=== PATIENT | female | born 1990 | race Caucasian/White ===

== ENCOUNTER → 2017-01-03 | Outpatient (CLI) | payer OTHER ==
--- NOTE | 2017-01-04 11:50 | US ---
Ultrasound-guided HISTORY: Palpable mass Ultrasound performed at the level of the palpable mass in the right neck. Apical focus measuring 4.4 x 1.4 cm is present. Grayscale, color Doppler imaging performed. No significant internal color flow. IMPRESSION: Soft tissue mass may represent adenopathy. Contrast-enhanced neck CT is recommended.
== END | disposition home or self-care (01) ==
LOC: RADUSWWP 15:28
PROVIDERS: ATTEND Family Medicine
DX: R22.1 Localized swelling, mass and lump, neck (principal)
CPT/HCPCS: 76536

== ENCOUNTER → 2017-01-15 | Outpatient (CLI) | payer OTHER ==
--- NOTE | 2017-01-16 10:13 | CT ---
EXAMINATION TYPE: CT soft tissue neck w con DATE OF EXAM: 01/15/2017 5:04 PM COMPARISON: NONE HISTORY: Right sided neck swelling marked by BB for [address] DLP: 367.8 mGycm CONTRAST: Patient injected with 100 mL of Omnipaque 300. TECHNIQUE: Axial images at 3 mm thick sections. Reconstructed images in the coronal plane and sagitt al plane are reviewed. FINDINGS: Limited CT sections are obtained the lung apices. The lung apices appear clear. CT neck: The torus tubarius and fossa of Rosenmuller are normal. Probate Judge spaces are normal. Para nasal sinuses and mastoid air cells are clear. Parotid glands appear normal and symmetrical. Submandibular glands, are normal. Parapharyngeal spac es are normal. There is a large hypodense smoothly bordered lesion within the left neck jugulodigast neno region. This is a transverse dimension of 2.3 cm. AP dimension appears to be 3.6 cm. Enlarged lym ph node may be present. Enhancement is not identified. Does not appear cystic with a Hounsfield unit measurement of 63. There are additional small bilateral cervical nodes present. The hypopharynx appears within normal limits. Vocal cord level appear symmetrical. Subglottic airway appears normal. Thyroid as visualized is normal. Osseous structures are normal. Ascending thoracic aorta at the level of the main pulmonary artery is 3.0 cm. The main pulmonary leticia ry at the bifurcation is 2.8 cm. IMPRESSIONS: 1. 2.3 x 3.6 smooth enlarged density right neck likely is enlarged lymphadenopathy. This is in the ju gulodigastric region extending towards the anterior cervical chain corresponds to the inferior placed BB. Other etiologies could include a solid lesion without enhancement additional workup is recommend ed. Primary and metastatic lesions are not excluded.
== END ==
LOC: RADCTMAIN 16:34
PROVIDERS: ATTEND Family Medicine
DX: R22.9 Localized swelling, mass and lump, unspecified (principal)
CPT/HCPCS: 70491; Q9967

== ENCOUNTER → 2017-02-12 | Outpatient (CLI) | payer OTHER ==
--- NOTE | 2017-02-12 16:55 | CT ---
EXAMINATION TYPE: CT chest w con DATE OF EXAM: 02/12/2017 4:41 PM COMPARISON: NONE HISTORY: Swollen cervical lymph node x8 months. R/O chest nodules. CT DLP: 213.5 mGycm Automated exposure control for dose reduction was used. CONTRAST: CT scan of the chest is performed with IV Contrast, patient injected with 100 mL of Omnipaque 300. FINDINGS: The lungs are clear of infiltrate. There is no evidence of pleural effusion. There is no sign of a pu lmonary nodule. There are no hilar masses. There is no mediastinal adenopathy. Pulmonary arteries benja ear normal. Thoracic aorta shows no sign of aneurysm or dissection. The bony thorax appears intact. H eart size is normal. Visualized thyroid gland is symmetric. There are a few axillary lymph nodes that measure up to 1 cm. IMPRESSION: Normal CT scan of the chest. No evidence of pulmonary nodule.
== END | disposition home or self-care (01) ==
LOC: RADCTMAIN 16:18
PROVIDERS: ATTEND Surgery
DX: R59.0 Localized enlarged lymph nodes (principal)
CPT/HCPCS: 71260; Q9967

== ENCOUNTER 2017-02-20 06:11 | Day surgery (SDC) | payer OTHER ==
[2017-02-18 12:40] VITALS: BMI 26.6
[~2017-02-20 06:11] MED LIST: DEXAMETHASONE SOD PHOSPHATE 10 MG/ML 1 ML VIAL IV ONE; HYDROmorphone 1 MG/ML 1 ML SYRINGE IVP PRN; LACTATED RINGERS 1,000 ML IV SCH; LIDOCAINE 1% 20 ML VIAL (10MG/ML) FOR IV START INTRADERMA PRN; ONDANSETRON 4 MG/2 ML VIAL IVP ONE; SCOPOLAMINE 1.5MG/72HR PATCH TRANSDERM ONE
[2017-02-20 06:28] VITALS: TEMP 97.3
--- NOTE | 2017-02-20 07:51 | P.GSHP ---
History of Present Illness H&P Date: 02/20/17 Chief Complaint: Enlarged right cervical lymph node This a 26-year-old female with a mass in her right neck for prostate 6 months. Patient underwent computed tomography scan the neck and was found to have an enlarged cervical lymph node in the jugulodigastric area. Lymph node measured proximal to 3 cm in diameter. She presents today for right cervical lymph node biopsy. - Constitutional Constitutional: Reports as per HPI Past Medical History Past Medical History: No Reported History History of Any Multi-Drug Resistant Organisms: None Reported Past Surgical History: No Surgical Hx Reported Additional Past Surgical History / Comment(s): wisdom teeh extracted, R inner thigh lump removed. Past Anesthesia/Blood Transfusion Reactions: No Reported Reaction Past Psychological History: No Psychological Hx Reported Smoking Status: Never smoker Past Alcohol Use History: Occasional Past Drug Use History: Marijuana Additional Drug Use History / Comment(s): occasionally - Past Family History Mother Family Medical History: Cancer Additional Family Medical History / Comment(s): Breast Medications and Allergies Home Medications Medication Instructions Recorded Confirmed Type Dextroamphetamine/Amphetamine 1 tab PO DAILY 02/18/17 02/20/17 History [Adderall] Allergies Allergy/AdvReac Type Severity Reaction Status Date / Time No Known Allergies Allergy Verified 02/18/17 13:02 Surgical - Exam Vital Signs Temp Pulse Resp BP Pulse Ox 97.3 F L 69 16 109/65 97 02/20/17 06:27 02/20/17 06:27 02/20/17 06:27 02/20/17 06:27 02/20/17 06:27 - General well developed, no distress - Eyes PERRL - ENT normal pinna - Neck 3 cm enlarged lymph node right cervical area at the jugulodigastric region. The mass is firm and nontender - Respiratory normal expansion - Cardiovascular Rhythm: regular - Abdomen Abdomen: soft, non tender Assessment and Plan Plan: Right cervical lymphadenopathy. We'll perform right cervical lymph node biopsy.
[2017-02-20] MEDS ORDERED: PROPOFOL 10 MG/ML 20 ML VIAL IV ONE (07:55)
[2017-02-20] MEDS ORDERED: CLINDAMYCIN 150 MG/ML 4 ML VIAL ONE (07:55)
[2017-02-20] MEDS ORDERED: fentaNYL (PF) 50 MCG/ML 2 ML AMP ONE (07:55)
[2017-02-20] MEDS ORDERED: LIDOCAINE 1% INJ 10MG/ML (20 ML MDV) ONE (07:55)
[2017-02-20] MEDS ORDERED: SUCCINYLCHOLINE CHLORIDE 100 MG/5 ML SYR IV ONE (07:55)
[2017-02-20] MEDS ORDERED: ceFAZolin 1,000 MG VIAL ONE (07:55)
[2017-02-20] MEDS ORDERED: MIDAZOLAM 2 MG/2 ML VIAL ONE (07:55)
[2017-02-20] MEDS ORDERED: BUPIVACAINE (PF) 0.25% 30 ML VIAL SQ ONE ×2 (08:28)
[2017-02-20] MEDS ORDERED: SODIUM CHLORIDE 0.9% 50 ML with ceFAZolin 2,000 MG IV ONE ×2 (08:36)
[2017-02-20] MEDS ORDERED: SODIUM CHLORIDE 0.9% 50 ML with CLINDAMYCIN 600 MG IV ONE ×2 (08:42)
--- NOTE | 2017-02-20 09:00 | P.OP ---
Date of Procedure: 02/20/17 Preoperative Diagnosis: Right cervical lymphadenopathy Postoperative Diagnosis: Right cervical lymph node abscess Procedure(s) Performed: Right cervical lymph node biopsy and drainage of abscess Implants: Anesthesia: CATARINAA Surgeon: Jaxson Fortune Estimated Blood Loss (ml): 10 Pathology: other (cervical lymph node) Condition: stable Disposition: PACU Indications for Procedure: Operative Findings: Lymph node abscess Description of Procedure: The patient's placed the operative table in the supine position. She received general anesthesia. Her neck was prepped and draped usual sterile fashion. Patient had a 3 cm mass in the right jugulodigastric area. A transverse skin incision was made over the mass and then using electrocautery the subcutaneous tissue divided. The muscles were spread with a hemostat and the lymph node was visualized. Lymph node appeared to be large and fleshy. The lymph node was dissected with the Harmonic scissors. During the distal lymph node dissection the abscess cavity with a lymph node was entered. This was cultured. The lymph node was removed using Harmonic scissors. A 10 DINORAH drain was placed into the wound and brought through separate stab incision. The wound was irrigated. The wound was irrigated with saline. The deep layers closed 3-0 Vicryl. Serosal a 3-0 Monocryl. Dermabond was applied. Patient sent to recovery in stable condition.
[2017-02-20] MEDS ORDERED: LACTATED RINGERS 1,000 ML IV ONE (09:05)
[2017-02-20 12:23] VITALS: BP 100/55; PULSE 72; RESP 18
== END 2017-02-20 12:23 | disposition home or self-care (01) ==
LOC: OR 06:11
PROVIDERS: ATTEND Surgery
DX: Z79.899 Other long term (current) drug therapy (principal); L04.8 Acute lymphadenitis of other sites
CPT/HCPCS: 81025; 88305; 87070; 87205; 87075; 38500; J2250; J1100; J2405; J0690 ×2; J2001; J3010; J1170; J0330; J2704

== ENCOUNTER → 2018-01-12 | Outpatient (CLI) | payer OTHER ==
--- NOTE | 2018-01-12 13:01 | ECHOF ---
Referral Reason:R07.89 Atypical Chest Pain MEASUREMENTS -------- HEIGHT: 167.6 cm WEIGHT: 74.8 kg BP: 114/65 RVIDd: 2.2 cm (< 3.3) IVSd: 0.9 cm (0.6 - 1.1) LVIDd: 4.5 cm (3.9 - 5.3) LVPWd: 0.9 cm (0.6 - 1.1) IVSs: 1.4 cm LVIDs: 3.1 cm LVPWs: 1.3 cm LA Diam: 2.5 cm (2.7 - 3.8) Ao Diam: 3.1 cm (2.0 - 3.7) AV Cusp: 2.2 cm (1.5 - 2.6) MV EXCURSION: 21.605 mm (> 18.000) MV EF SLOPE: 175 mm/s (70 - 150) EPSS: 0.5 cm MV E Berry: 0.93 m/s MV DecT: 230 ms MV A Berry: 0.66 m/s MV E/A Ratio: 1.41 FINDINGS -------- Sinus rhythm. This was a technically good study. The left ventricular size is normal. Left ventricular wall thickness is normal. Overall left vent ricular systolic function is normal with, an EF between 60 - 65 %. The right ventricle is normal in size. The left atrial size is normal. The right atrium is normal in size. The aortic valve is trileaflet and appears structurally normal. The mitral valve is normal. The tricuspid valve appears structurally normal. There is no pulmonic regurgitation present. The aortic root size is normal. Normal inferior vena cava with normal inspiratory collapse consistent with estimated right atrial pre ssure of 5 mmHg. There is no pericardial effusion. CONCLUSIONS -------- 1. Sinus rhythm. 2. This was a technically good study. 3. The left ventricular size is normal. 4. Left ventricular wall thickness is normal. 5. Overall left ventricular systolic function is normal with, an EF between 60 - 65 %. 6. The right ventricle is normal in size. 7. The left atrial size is normal. 8. The right atrium is normal in size. 9. The aortic valve is trileaflet and appears structurally normal. 10. The mitral valve is normal. 11. The tricuspid valve appears structurally normal. 12. There is no pulmonic regurgitation present. 13. The aortic root size is normal. 14. Normal inferior vena cava with normal inspiratory collapse consistent with estimated right atrial pressure of 5 mmHg. 15. There is no pericardial effusion. MANUFACTURING PROJECT ENGINEER: Tayler Wild RDCS
--- NOTE | 2018-01-12 13:14 | EST ---
EXERCISE STRESS AGE: 27 SEX: F HT: 5'6" WT: 164 PROTOCOL: Francisco Stress Test STAGE: III DURATION OF EXERCISE: 9:30 HEART RATE REST: 78 BLOOD PRESSURE REST: 114/65 MAXIMUM HEART RATE ACHIEVED: 168 MAXIMUM BLOOD PRESSURE: 157/62 85% MPHR: 164 100% MPHR: 193 METS: 11.1 INDICATIONS: Chest pain. CLINICAL INFORMATION: Baseline EKG shows sinus rhythm, normal axis, normal intervals. Patient exercised on Francisco protocol for a total of 9.5 minutes achieving 11 METs, 87% of predicted maximal heart rate without chest pain or diagnostic ST-segment depression. CONCLUSION: 1. Excellent exercise tolerance. 2. Negative stress test by EKG criteria. MMODL / IJN: [id number] /
== END | disposition home or self-care (01) ==
LOC: RADNMMAIN 10:49
PROVIDERS: ATTEND Family Medicine
DX: R07.89 Other chest pain (principal)
CPT/HCPCS: 93017; 93306

== ENCOUNTER → 2018-10-15 | Outpatient (CLI) | payer OTHER ==
--- NOTE | 2018-10-15 13:04 | XR ---
EXAM TYPE: LUMBAR SPINE X RAY SERIES COMPARISON: NONE HISTORY: Low back pain TECHNIQUE: 4 views are submitted. FINDINGS: Alignment is anatomic. The pedicles are intact. The transverse processes are intact. There is no s pondylolysis or spondylolisthesis. Facet arthropathy L4-5 and L5-S1. IMPRESSION: 1. Multilevel facet arthropathy. Consider MRI.
== END | disposition home or self-care (01) ==
LOC: RADXRMAIN 12:37
PROVIDERS: ATTEND Family Medicine
DX: M46.96 Unspecified inflammatory spondylopathy, lumbar region (principal); M46.97 Unspecified inflammatory spondylopathy, lumbosacral region
CPT/HCPCS: 72110

== ENCOUNTER → 2018-10-20 | Outpatient (CLI) | payer OTHER ==
--- NOTE | 2018-10-21 04:08 | MR ---
EXAMINATION TYPE: MR lumbar spine wo con DATE OF EXAM: 10/20/2018 COMPARISON: Radiographs 10/15/2018 HISTORY: 28-year-old female Back pain / Radiculopathy TECHNIQUE: Multiplanar, multisequence images of the lumbar spine were acquired. FINDINGS: There is a transitional lumbosacral segment denoted as a sacralized L5. There are accelerated degenerative changes above the transitional segment at L4-L5 characterized by d isc desiccation and mild disc interspace narrowing as well as a focal central disc protrusion disc ma terial closely approaches but does not clearly abut the traversing left L5 nerve root. All the herniation does focally impresses on to the central aspect of the ventral thecal sac, there i s no significant spinal canal stenosis. Mild facet arthropathy mid to lower lumbar spine. Changes result in minimal bilateral inferior foraminal narrowing at L4-L5. Conus medullaris is normal. Vertebral body heights are preserved. Alignment is maintained. No suspici ous bone marrow replacement. No other focal disc herniation or significant spinal canal or neuroforaminal stenosis. IMPRESSION: 1. Transitional lumbosacral segment denoted as a sacralized L5. 2. Accelerated degenerative disc disease above the transitional segment with a desiccated and mildly narrowed disc demonstrating a central disc herniation. 3. The herniated disc closely approaches the traversing left L5 nerve root. No significant spinal can al stenosis. 4. Along with mild facet arthropathy, there is minimal bilateral inferior neuroforaminal narrowing at L4-L5.
== END | disposition home or self-care (01) ==
LOC: RADMRIMAIN 07:44
PROVIDERS: ATTEND Family Medicine
DX: M48.061 Spinal stenosis, lumbar region without neurogenic claudication (principal); M51.16 Intervertebral disc disorders with radiculopathy, lumbar region; M46.96 Unspecified inflammatory spondylopathy, lumbar region; Q76.49 Other congenital malformations of spine, not associated with scoliosis
CPT/HCPCS: 72148

== ENCOUNTER → 2019-12-09 | Outpatient (CLI) | payer OTHER ==
--- NOTE | 2019-12-10 09:53 | MM ---
Reason for exam: screening (asymptomatic). Baseline mammogram. History: Patient has breast cancer gene. Family history of breast cancer in mother at age 49 and breast cancer in maternal grandmother at age 40. Took hormonal contraceptives for 7 years beginning at age 14. Physical Findings: Nurse did not find any significant physical abnormalities on exam. MG 3D Screening Mammo W/Cad Bilateral CC and MLO view(s) were taken. XCCL view(s) were taken of the left breast. The breast tissue is heterogeneously dense. This may lower the sensitivity of mammography. There is a 6mm right central upper right mass 2.5-3.5cm from nipple. No suspicious abnormality on the left. These results were verbally communicated with the patient and result sheet given to the patient on 12/09/19. ASSESSMENT: Incomplete: need additional imaging evaluation, BI-RAD 0 RECOMMENDATION: Ultrasound of the right breast. (upper outer quadrant)
--- NOTE | 2019-12-10 09:55 | USB ---
Reason for exam: additional evaluation requested from abnormal screening. History: Patient has breast cancer gene. Family history of breast cancer in mother at age 49 and breast cancer in maternal grandmother at age 40. Took hormonal contraceptives for 7 years beginning at age 14. Physical Findings: Breast exam preformed at baseline screening. US Breast Workup Limited RT Right limited breast ultrasound including focal area of concern, retroareolar and axilla demonstrates no cystic or solid lesion seen. No corresponding sonographic abnormality to the mammographic mass. These results were verbally communicated with the patient and result sheet given to the patient on 12/09/19. ASSESSMENT: Incomplete: need additional imaging evaluation, BI-RAD 0 RECOMMENDATION: Special view mammogram of the right breast.
--- NOTE | 2019-12-10 09:58 | MM ---
Reason for exam: additional evaluation requested from abnormal screening. History: Patient has breast cancer gene. Family history of breast cancer in mother at age 49 and breast cancer in maternal grandmother at age 40. Took hormonal contraceptives for 7 years beginning at age 14. Physical Findings: Breast exam preformed at baseline screening. MG 3D Work Up W/Cad RT Spot compression CC, spot compression MLO, and LM view(s) were taken of the right breast. The breast tissue is heterogeneously dense. This may lower the sensitivity of mammography. The 6mm right upper outer quadrant mass persists on additional views with no sonographic correlate. An additional 6mm mass with no sonographic correlate is seen on spot views in the upper inner quadrant at middle depth. As this is a baseline these could be on the basis of oval focal dense tissue. 6 month follow up right mammogram recommended. These results were verbally communicated with the patient and result sheet given to the patient on 12/09/19. ASSESSMENT: Probably benign, BI-RAD 3 RECOMMENDATION: Follow-up diagnostic mammogram of the right breast in 6 months. High risk annual screening breast MRI should be considered.
== END | disposition home or self-care (01) ==
LOC: RADMAMWWP 14:51
PROVIDERS: ATTEND Internal Medicine Hematology & Oncology
DX: Z12.31 Encounter for screening mammogram for malignant neoplasm of breast (principal); R92.8 Other abnormal and inconclusive findings on diagnostic imaging of breast; Z80.3 Family history of malignant neoplasm of breast
CPT/HCPCS: 77067; 77065; 77063; 76642; G0279; 77061

== ENCOUNTER 2020-05-03 17:43 | Emergency (ER) | payer OTHER ==
[2020-05-03 17:48] VITALS: RESP 16
[2020-05-03] MEDS ORDERED: SODIUM CHLORIDE 0.9% 1,000 ML IV STA ×2 (18:07)
[2020-05-03] MEDS ORDERED: ONDANSETRON 4 MG/2 ML VIAL IVP STA (18:07)
[2020-05-03] MEDS ORDERED: PANTOPRAZOLE 40 MG/10 ML VIAL IVP STA (18:07)
[2020-05-03] MEDS ORDERED: SODIUM CHLORIDE 0.9% 500 ML 500 ML IV STA (18:07)
[2020-05-03] MEDS ORDERED: DIAZEPAM 5 MG/ML 2 ML INJ IVP STA (18:08)
--- NOTE | 2020-05-03 18:08 | ED ---
Weakness HPI - General Chief complaint: Shortness of Breath Stated complaint: SOB/shaky/blurred vision Time Seen by Provider: 05/03/20 18:07 Source: patient, RN notes reviewed, old records reviewed Mode of arrival: ambulatory Limitations: no limitations - History of Present Illness Initial comments: This is a 29-year-old female DF for evaluation patient Dese for evaluation regards to not feeling well some tremors and shakes some sweating. No signific ant medical history takes Adderall for medication does admit to a three-day history of 43 to four-day history of drinking, patient was on vacation out in the sun sensation is primary well. Patient hasn't shortness of breath and some anxiety this afternoon and came DF for evaluation. No current chest pain. Patient is denying any fever or known sick contacts MD Complaint: generalized weakness (Shortness of breath weakness tremors) -: hour(s) Location: generalized Severity: mild Consistency: constant Improves with: none, evening Associated Symptoms: chest pain, loss of appetite, nausea/vomiting, shortness of breath - Related Data Home Medications Medication Instructions Recorded Confirmed Dextroamphetamine/Amphetamine 1 tab PO DAILY 02/18/17 02/20/17 [Adderall] Previous Rx's Medication Instructions Recorded Docusate [Colace] 100 mg PO BID #20 capsule 02/20/17 HYDROcodone/APAP 7.5-325MG [[place] 1 each PO Q4H PRN #60 tab 02/20/17 7.5] Levofloxacin [Levaquin] 500 mg PO DAILY #10 tab 02/20/17 Allergies Allergy/AdvReac Type Severity Reaction Status Date / Time hydrocodone [From Vicodin] AdvReac Unknown Verified 05/03/20 17:48 Review of Systems ROS Statement: Those systems with pertinent positive or pertinent negative responses have been documented in the HPI. ROS Other: All systems not noted in ROS Statement are negative. Past Medical History Past Medical History: No Reported History History of Any Multi-Drug Resistant Organisms: None Reported Past Surgical History: No Surgical Hx Reported Additional Past Surgical History / Comment(s): alberto choe Past Anesthesia/Blood Transfusion Reactions: Unable to Obtain Past Psychological History: No Psychological Hx Reported Smoking Status: Current every day smoker Past Alcohol Use History: Occasional Past Drug Use History: Marijuana - Past Family History Mother Family Medical History: Cancer General Exam Limitations: no limitations General appearance: alert, in no apparent distress, anxious Head exam: Present: atraumatic, normocephalic, normal inspection Eye exam: Present: normal appearance, PERRL, EOMI. Absent: scleral icterus, conjunctival injection, periorbital swelling ENT exam: Present: normal exam, mucous membranes moist Neck exam: Present: normal inspection. Absent: tenderness, meningismus, lymphadenopathy Respiratory exam: Present: normal lung sounds bilaterally. Absent: respiratory distress, wheezes, rales, rhonchi, stridor Cardiovascular Exam: Present: regular rate, normal rhythm, normal heart sounds. Absent: systolic murmur, diastolic murmur, rubs, gallop, clicks GI/Abdominal exam: Present: soft, normal bowel sounds. Absent: distended, tenderness, guarding, rebound, rigid Extremities exam: Present: normal inspection, full ROM, normal capillary refill. Absent: tenderness, pedal edema, joint swelling, calf tenderness Back exam: Present: normal inspection Neurological exam: Present: alert, oriented X3, CN II-XII intact Psychiatric exam: Present: normal affect, normal mood Skin exam: Present: warm, dry, intact, normal color. Absent: rash Course Vital Signs 05/03/20 05/03/20 05/03/20 17:45 18:36 19:08 Temperature 98.3 F Pulse Rate 95 82 79 Respiratory 16 16 16 Rate Blood Pressure 143/92 124/76 124/76 O2 Sat by Pulse 97 99 100 Oximetry - Reevaluation(s) Reevaluation #1: 05/03/20 21:01 Medical record is reviewed Reevaluation #2: 05/03/20 21:01 Patient feels significantly improved informed of results okay for discharge Medical Decision Making - Medical Decision Making 29 female DF for significant weekend drinking. Patient symptoms significantly improved here in the ER she can be discharged home - Lab Data Result diagrams: 05/03/20 18:20 05/03/20 18:20 Lab Results 05/03/20 05/03/20 05/03/20 Range/Units 18:20 18:20 18:20 WBC 11.3 H (3.8-10.6) k/uL RBC 4.38 (3.80-5.40) m/uL Hgb 13.3 (11.4-16.0) gm/dL Hct 40.8 (34.0-46.0) % MCV 93.2 (80.0-100.0) fL MCH 30.3 (25.0-35.0) pg MCHC 32.6 (31.0-37.0) g/dL RDW 12.3 (11.5-15.5) % Plt Count 325 (150-450) k/uL Neutrophils % 70 % Lymphocytes % 22 % Monocytes % 5 % Eosinophils % 1 % Basophils % 1 % Neutrophils # 7.9 H (1.3-7.7) k/uL Lymphocytes # 2.5 (1.0-4.8) k/uL Monocytes # 0.6 (0-1.0) k/uL Eosinophils # 0.1 (0-0.7) k/uL Basophils # 0.1 (0-0.2) k/uL Sodium 136 L (137-145) mmol/L Potassium 4.1 (3.5-5.1) mmol/L Chloride 104 (98-107) mmol/L Carbon Dioxide 23 (22-30) mmol/L Anion Gap 9 mmol/L BUN 8 (7-17) mg/dL Creatinine 0.57 (0.52-1.04) mg/dL Est GFR (CKD-EPI)AfAm >90 (>60 ml/min/1.73 sqM) Est GFR (CKD-EPI)NonAf >90 (>60 ml/min/1.73 sqM) Glucose 120 H (74-99) mg/dL Plasma Lactic Acid Gennaro 1.5 (0.7-2.0) mmol/L Calcium 9.7 (8.4-10.2) mg/dL Phosphorus 3.5 (2.5-4.5) mg/dL Magnesium 1.6 (1.6-2.3) mg/dL Total Bilirubin 0.4 (0.2-1.3) mg/dL AST 47 H (14-36) U/L ALT 42 H (4-34) U/L Alkaline Phosphatase 95 (38-126) U/L Creatine Kinase 221 H (30-135) U/L Troponin I (0.000-0.034) ng/mL Total Protein 6.9 (6.3-8.2) g/dL Albumin 4.3 (3.5-5.0) g/dL Serum Alcohol <10 mg/dL 05/03/20 Range/Units 18:20 WBC (3.8-10.6) k/uL RBC (3.80-5.40) m/uL Hgb (11.4-16.0) gm/dL Hct (34.0-46.0) % MCV (80.0-100.0) fL MCH (25.0-35.0) pg MCHC (31.0-37.0) g/dL RDW (11.5-15.5) % Plt Count (150-450) k/uL Neutrophils % % Lymphocytes % % Monocytes % % Eosinophils % % Basophils % % Neutrophils # (1.3-7.7) k/uL Lymphocytes # (1.0-4.8) k/uL Monocytes # (0-1.0) k/uL Eosinophils # (0-0.7) k/uL Basophils # (0-0.2) k/uL Sodium (137-145) mmol/L Potassium (3.5-5.1) mmol/L Chloride (98-107) mmol/L Carbon Dioxide (22-30) mmol/L Anion Gap mmol/L BUN (7-17) mg/dL Creatinine (0.52-1.04) mg/dL Est GFR (CKD-EPI)AfAm (>60 ml/min/1.73 sqM) Est GFR (CKD-EPI)NonAf (>60 ml/min/1.73 sqM) Glucose (74-99) mg/dL Plasma Lactic Acid Gennaro (0.7-2.0) mmol/L Calcium (8.4-10.2) mg/dL Phosphorus (2.5-4.5) mg/dL Magnesium (1.6-2.3) mg/dL Total Bilirubin (0.2-1.3) mg/dL AST (14-36) U/L ALT (4-34) U/L Alkaline Phosphatase (38-126) U/L Creatine Kinase (30-135) U/L Troponin I <0.012 (0.000-0.034) ng/mL Total Protein (6.3-8.2) g/dL Albumin (3.5-5.0) g/dL Serum Alcohol mg/dL - Radiology Data Radiology results: report reviewed (Chest x-rays negative for acute disease), image reviewed Disposition Clinical Impression: Anxiety, Alcohol withdrawal Disposition: HOME SELF-CARE Instructions (If sedation given, give patient instructions): Alcohol Withdrawal (ED) Is patient prescribed a controlled substance at d/c from ED?: No Referrals: Henrry Marcus DO [Primary Care Provider] - 1-2 days
[2020-05-03 18:40] LABS: Basophils # (A) 0.1 k/uL (0-0.2); Basophils % (A) 1 %; Eosinophils # (A) 0.1 k/uL (0-0.7); Eosinophils % (A) 1 %; HCT 40.8 % (34.0-46.0); HGB 13.3 gm/dL (11.4-16.0); Lymphocytes # (A) 2.5 k/uL (1.0-4.8); Lymphocytes % (A) 22 %; MCH 30.3 pg (25.0-35.0); MCHC 32.6 g/dL (31.0-37.0); MCV 93.2 fL (80.0-100.0); Mean Platelet Volume 7.3; Monocytes # (A) 0.6 k/uL (0-1.0); Monocytes % (A) 5 %; Neutrophils # (A) 7.9 k/uL (1.3-7.7); Neutrophils % (A) 70 %; Platelet Count 325 k/uL (150-450); RBC 4.38 m/uL (3.80-5.40); RDW 12.3 % (11.5-15.5); WBC 11.3 k/uL (3.8-10.6)
[2020-05-03 18:49] LABS: ALT 42 U/L (4-34); AST 47 U/L (14-36); African American GFR (CKD) >90 (>60 ml/min/1.73 sqM); Albumin 4.3 g/dL (3.5-5.0); Alcohol <10 mg/dL; Alkaline Phosphatase 95 U/L (38-126); Anion Gap 9 mmol/L; Blood Urea Nitrogen 8 mg/dL (7-17); Calcium 9.7 mg/dL (8.4-10.2); Carbon Dioxide 23 mmol/L (22-30); Chloride 104 mmol/L (98-107); Creatine Kinase 221 U/L (30-135); Glucose 120 mg/dL (74-99); Magnesium 1.6 mg/dL (1.6-2.3); Non-African American GFR(CKD) >90 (>60 ml/min/1.73 sqM); Phosphorus 3.5 mg/dL (2.5-4.5); Potassium 4.1 mmol/L (3.5-5.1); Sodium 136 mmol/L (137-145); Total Bilirubin 0.4 mg/dL (0.2-1.3); Total Protein 6.9 g/dL (6.3-8.2)
--- NOTE | 2020-05-03 18:51 | XR ---
EXAMINATION TYPE: XR chest 2V DATE OF EXAM: 05/03/2020 COMPARISON: Chest CT February 12, 2017. HISTORY: Shortness of breath. TECHNIQUE: Frontal and lateral views of the chest are obtained. FINDINGS: There is no focal air space opacity, pleural effusion, or pneumothorax seen. The cardiac silhouette size remains enlarged. The osseous structures are intact. IMPRESSION: Cardiomegaly without acute pulmonary process.
[2020-05-03] MEDS ORDERED: diazePAM 5 MG TAB PO STA (20:59)
[2020-05-03 21:10] VITALS: BP 125/87; PULSE 87; TEMP 98
== END 2020-05-03 21:10 | disposition home or self-care (01) ==
LOC: EC 17:43
DX: F10.239 Alcohol dependence with withdrawal, unspecified (principal); R06.02 Shortness of breath; F17.200 Nicotine dependence, unspecified, uncomplicated; Z88.5 Allergy status to narcotic agent
CPT/HCPCS: 36415; 80053; 82550; 83605; 83735; 84100; 84484; 85025; 71046; 99285; 96374; 96375 ×2; 96361 ×3; G0480; J3360; J2405; C9113; 80320

== ENCOUNTER → 2020-08-31 | Outpatient (CLI) | payer OTHER ==
--- NOTE | 2020-08-31 14:10 | MM ---
Reason for exam: follow-up at short interval from prior study. Last mammogram was performed 9 months ago. History: Patient has breast cancer gene. Family history of breast cancer in mother at age 49 and breast cancer in maternal grandmother at age 40. Took hormonal contraceptives for 7 years beginning at age 14. Physical Findings: Nurse did not find any significant physical abnormalities on exam. MG 3D Diag Mammo W/Cad RT CC and MLO view(s) were taken of the right breast. Prior study comparison: December 09, 2019, right breast MG 3d work up w/cad RT. December 09, 2019, bilateral MG 3d screening mammo w/cad. There are scattered fibroglandular densities. There is chronic nodularity in the right breast, stable. These results were verbally communicated with the patient and result sheet given to the patient on 08/31/20. ASSESSMENT: Benign, BI-RAD 2 RECOMMENDATION: Breast MRI of both breasts. Follow-up diagnostic mammogram of both breasts in 3 months. Back on schedule for November 2020.
== END | disposition home or self-care (01) ==
LOC: RADMAMWWP 12:36
PROVIDERS: ATTEND Family Medicine
DX: R92.8 Other abnormal and inconclusive findings on diagnostic imaging of breast (principal)
CPT/HCPCS: 77065; G0279; 77061

== ENCOUNTER → 2020-09-25 | Outpatient (CLI) | payer OTHER ==
--- NOTE | 2020-09-25 11:51 | US ---
EXAMINATION TYPE: US transvaginal DATE OF EXAM: 09/25/2020 COMPARISON: NONE CLINICAL HISTORY: 30-year-old female Z15.02 ovarian cancer. Genetic ovarian CA TECHNIQUE: Transvaginal (TV). FINDINGS: EXAM MEASUREMENTS: Uterus: 6.7 x 2.7 x 4.1 cm Endometrial Stripe: .2 cm Right Ovary: 3.3 x 1.7 x 2.8 cm Left Ovary: 3.3 x 2.3 x 2.6 cm 1. Uterus: Anteverted and otherwise wnl 2. Endometrium: Trace fluid seen within the uterine cavity. 3. Right Ovary: Small follicles present. There is also a 1.7 x 0.8 cm hypoechoic circumscribed and o void lesion that shows some internal reticulations. 4. Left Ovary: Small follicles are seen 5. Bilateral Adnexa: wnl 6. Posterior cul-de-sac: wnl IMPRESSION: 1. Follicles in both ovaries. In addition, there is a 1.7 x 0.8 cm hypoechoic area within the right o vary. Given internal echoes, a hemorrhagic follicle/cyst is suspected. Follow-up in 2-3 months to dorie ssess. 2. Endometrial stripe is thin at 2 mm.
== END | disposition home or self-care (01) ==
LOC: RADUSWWP 09:31
PROVIDERS: ATTEND Internal Medicine Hematology & Oncology
DX: Z15.02 Genetic susceptibility to malignant neoplasm of ovary (principal)
CPT/HCPCS: 76830

== ENCOUNTER → 2020-09-30 | Outpatient (CLI) | payer OTHER ==
--- NOTE | 2020-10-02 08:19 | BMR ---
EXAMINATION TYPE: MR breast BILAT wo/w con DATE OF EXAM: 09/30/2020 COMPARISON: 3-D bilateral breast mammogram December 09, 2019 BI-RADS 0 right breast diagnostic ultrasoun d December 09, 2019 BI-RADS 0. 3-D right breast diagnostic workup same date BI-RADS 3. 3-D right breast mammogram diagnostic August 31, 2020 BI-RADS 2 HISTORY: Genetic mutation for breast and ovarian cancer, abnormal mammogram TECHNIQUE: A series of fat and water weighted images in the long and short axis views of both breasts are obtained in conjunction with dynamic contrast MRI with subtraction technique. The patient was i njected with 8.5 mL intravenous Gadavist gadolinium contrast. Three-dimensional and additional post processing imaging is created on independent workstation and reviewed during official interpretation of this study. FINDINGS: Scattered fibroglandular tissue is redemonstrated throughout both breasts. T2 and STIR weig hted images show 2 adjacent small cysts or slightly lobulated thin-walled cyst in the anterior upper inner quadrant left breast coronal image 10 likely corresponding to the area of mammogram concern. No significant cystic change in the left breast. T1-weighted images show no suspicious axillary adenopa thy bilaterally. Dynamic postcontrast images show mild fairly symmetric bilateral background glanular enhancement. Delayed dynamic postcontrast images show no suspicious intramammary adenopathy. With regards to the left breast, no abnormal skin thickening is seen. No concerning enhancing mass or pathologic enhancement. The chest wall is intact. With regards to the right breast, no pathologic enhancement or enhancing masses are identified. No cerda spicious skin thickening is seen. The chest wall is intact. No suspicious incidental findings. IMPRESSION: No MRI evidence for invasive malignancy in either breast. BI-RADS 2 benign findings right breast BI-RADS 1 negative study left breast Recommendation: Patient due for annual bilateral breast mammogram November 2020 to be back on schedule.
== END | disposition home or self-care (01) ==
LOC: RADMRIMAIN 13:39
PROVIDERS: ATTEND Internal Medicine Hematology & Oncology
DX: R92.8 Other abnormal and inconclusive findings on diagnostic imaging of breast (principal); Z15.01 Genetic susceptibility to malignant neoplasm of breast; Z15.02 Genetic susceptibility to malignant neoplasm of ovary
CPT/HCPCS: C8937; C8908; A9585; 77049

== ENCOUNTER → 2021-03-29 | Outpatient (CLI) | payer OTHER ==
--- NOTE | 2021-03-29 17:18 | US ---
EXAMINATION TYPE: US transvaginal DATE OF EXAM: 03/29/2021 COMPARISON: 09/25/2020 CLINICAL HISTORY: Z15.02 Genetic suspect ovarian CA TECHNIQUE: Transvaginal (TV). Date of LMP: 03/10/21 EXAM MEASUREMENTS: Uterus: 7.3 x 2.7 x 3.4 cm Endometrial Stripe: 0.6 cm Right Ovary: 2.7 x 1.5 x 3.3 cm Left Ovary: 3.6 x 1.9 x 1.8 cm 1. Uterus: Anteverted wnl 2. Endometrium: wnl 6 mm, within normal limits for menstruating female 3. Right Ovary: follicles noted 4. Left Ovary: dominant follicle = 1.8cm 5. Bilateral Adnexa: wnl 6. Posterior cul-de-sac: wnl IMPRESSION: 1. Endometrial stripe is 6 mm, within normal limits for menstruating female. 2. Bilateral ovarian follicles. Dominant follicle in the left ovary measuring 1.8 cm. No free fluid.
--- NOTE | 2021-04-02 15:14 | MM ---
Reason for exam: screening (asymptomatic). Last mammogram was performed 7 months ago. History: Patient has breast cancer gene and is nulliparous. Family history of breast cancer in mother at age 49 and breast cancer in maternal grandmother at age 40. Took hormonal contraceptives for 7 years beginning at age 14. Physical Findings: A clinical breast exam by your physician is recommended on an annual basis and results should be correlated with mammographic findings. MG 3D Screening Mammo W/Cad Bilateral CC and MLO view(s) were taken. Prior study comparison: August 31, 2020, right breast MG 3d diag mammo w/cad RT. December 09, 2019, right breast MG 3d work up w/cad RT. There are scattered fibroglandular densities. No significant changes when compared with prior studies. ASSESSMENT: Negative, BI-RAD 1 RECOMMENDATION: Routine screening mammogram of both breasts at age 40. Manage patient on a clinical basis. The patient may qualify for alternating mammogram and MRI every 6 months.
== END | disposition home or self-care (01) ==
LOC: RADUSWWP 09:41
PROVIDERS: ATTEND Internal Medicine Hematology & Oncology
DX: Z12.31 Encounter for screening mammogram for malignant neoplasm of breast (principal); Z15.02 Genetic susceptibility to malignant neoplasm of ovary; Z80.3 Family history of malignant neoplasm of breast; Z79.3 Long term (current) use of hormonal contraceptives
CPT/HCPCS: 76830; 77063; 77067

== ENCOUNTER → 2021-10-01 | Outpatient (CLI) | payer OTHER ==
--- NOTE | 2021-10-03 07:16 | BMR ---
EXAMINATION TYPE: MR breast BILAT wo/w con DATE OF EXAM: 10/01/2021 COMPARISON: MRI bilateral breasts 09/30/2020. HISTORY: Suspected genetic mal najma breast, family history breast ca TECHNIQUE: A series of fat and water weighted images in the long and short axis views of both breasts are obtained in conjunction with dynamic contrast MRI with subtraction technique. The patient was i njected with 7.5 mL intravenous Gadavist gadolinium contrast. Three-dimensional and additional post processing imaging is created on independent workstation and reviewed during official interpretation of this study. FINDINGS: Heterogeneously dense fibroglandular tissue is identified throughout both breasts. T2 and STIR weight ed images redemonstrated 2 adjacent small cysts or slightly lobulated thin-walled cyst in the anterio r upper inner quadrant left breast coronal image 11 unchanged from prior MRI. There is third addition al slightly smaller thin-walled benign punctate cyst towards the nipple axial image 29 unchanged from prior study. No significant cystic change in the left breast. T1-weighted images show no suspicious new axillary adenopathy bilaterally. Dynamic postcontrast images show moderate to severe fairly symmetric bilateral background glanular en hancement on current study making evaluation suboptimal. History sheet is reviewed. Patient's last no rmal menstrual period September 04. This is outside the desired window of the proliferative phase of m enstrual cycle likely accounting for the significant background enhancement. Delayed dynamic postcont rast images show no suspicious intramammary adenopathy. With regards to the left breast, no abnormal skin thickening is seen. No concerning enhancing mass or pathologic enhancement. The chest wall is intact. With regards to the right breast, no pathologic enhancement or enhancing masses are identified. No cerda spicious skin thickening is seen. The chest wall is intact. No suspicious incidental findings. IMPRESSION: Suboptimal study without MRI evidence for invasive malignancy in either breast. Recommendation: Annual MRI surveillance September 2022.
== END | disposition home or self-care (01) ==
LOC: RADMRIMAIN 08:08
PROVIDERS: ATTEND Internal Medicine Hematology & Oncology
DX: Z15.02 Genetic susceptibility to malignant neoplasm of ovary (principal); Z80.3 Family history of malignant neoplasm of breast
CPT/HCPCS: C8937; C8908; A9585; 77049

== ENCOUNTER → 2022-01-08 | Outpatient (CLI) | payer OTHER ==
--- NOTE | 2022-01-09 07:50 | US ---
EXAMINATION TYPE: US transvaginal DATE OF EXAM: 01/08/2022 COMPARISON: NONE CLINICAL HISTORY: Z15.02 GENETIC SUSCEPTIBILITY TO MALIGNANT NEOPLASM. Follow up to previous. TECHNIQUE: Transvaginal (TV EXAM MEASUREMENTS: Uterus: 7.3 x 3.3 x 4.6 cm Endometrial Stripe: .9 cm Right Ovary: 3.3 x 1.3 x 2.1 cm Left Ovary: 2.7 x 2.2 x 2.7 cm 1. Uterus: Anteverted wnl 2. Endometrium: wnl 3. Right Ovary: wnl 4. Left Ovary: Hypoechoic area seen measuring 1.6 x 2.3 x 1.5 cm. 5. Bilateral Adnexa: wnl 6. Posterior cul-de-sac: wnl IMPRESSION: Left ovarian cystic lesion likely reflecting small hemorrhagic cyst. Neoplasm not excluded. Follow-up in 6 weeks is advised.
== END | disposition home or self-care (01) ==
LOC: RADUSWWP 15:28
PROVIDERS: ATTEND Internal Medicine Hematology & Oncology
DX: N83.202 Unspecified ovarian cyst, left side (principal)
CPT/HCPCS: 76830

== ENCOUNTER → 2022-09-04 | Outpatient (CLI) | payer OTHER ==
--- NOTE | 2022-09-04 16:47 | US ---
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 Pt states palpable lump right lateral neck x 1 month- pt states h/o infected lymph node in same area 5 years ago Right lateral neck in area of pt's palpable, inferior to right submandibular gland, there is a hypo echoic probable abnormal lymph node= 3.7 x 2.4 x 2.3 cm. Two probable smaller lymph nodes visualized inferior to largest node 1)= 1.8 x 0.7 x 0.7 cm 2)= 1.5 x 0.6 x 0.6 cm IMPRESSION: Enlarged lymph node at the level of palpable abnormality. Consider additional workup with contrast CT soft tissue neck. Consider biopsy.
== END | disposition home or self-care (01) ==
LOC: RADUSWWP 16:11
PROVIDERS: ATTEND Family Medicine
DX: R59.0 Localized enlarged lymph nodes (principal); K11.1 Hypertrophy of salivary gland
CPT/HCPCS: 76536

== ENCOUNTER → 2022-10-21 | Outpatient (CLI) | payer OTHER ==
--- NOTE | 2022-10-21 08:02 | CT ---
EXAMINATION TYPE: CT soft tissue neck wo/w con DATE OF EXAM: 10/21/2022 HISTORY: Right sided neck swelling and enlarged lymph nodes. COMPARISON: Prior CT neck 2017 CT DLP: 1012.2 mGycm. Automated Exposure Control for Dose Reduction was Utilized. TECHNIQUE: CT scan of the neck is performed without and with IV Contrast, patient injected with 70ml mL of Isovue 300, axial images are obtained, coronal and sagittal reformatted images are reviewed. FINDINGS: Airway: No gross abnormality seen. Parotid/submandibular glands: No gross abnormality seen. Carotid/Vascular Structures: Some motion artifact degradation axial image 53 level thyroid gland. No significant plaque in the carotid bulb level. Osseous Structures: No significant abnormality. Other: Metallic BB placed at level of palpable abnormality right neck axial image 64. This correspond s to oval hypodense lesion measuring 1.9 x 1.4 cm just posterior to the inferior aspect of the right submandibular gland having local mass effect causing carotid and jugular vessels to be deviated poste riorly and centrally. This was present and was larger on prior study where was contiguous superiorly. Current study shows second oval circumscribed 2.3 x 1.9 cm mass superior to this just deep to the po sterior inferior aspect of the right parotid gland axial image 72. There are prominent but subcentimeter lymph nodes seen bilaterally including posterior cervical trian gles. Finding is similar appearance to prior study. No new greater than 1 cm neck adenopathy is seen. IMPRESSION: Well-circumscribed right neck lesions on current study correspond to site of prior single larger lesion on prior exam. Correlate clinically. Differential includes necrotic adenopathy and con genital etiology such as brachial cleft cyst. Other findings are not excluded. Follow-up advised.
== END | disposition home or self-care (01) ==
LOC: RADCTMAIN 07:05
PROVIDERS: ATTEND Family Medicine
DX: Q18.0 Sinus, fistula and cyst of branchial cleft (principal); R59.0 Localized enlarged lymph nodes
CPT/HCPCS: 70492; Q9967

== ENCOUNTER 2023-01-13 06:33 | Emergency (ER) | payer OTHER ==
[2023-01-13 06:41] VITALS: TEMP 97.6
[2023-01-13] MEDS ORDERED: SODIUM CHLORIDE 0.9% 1,000 ML IV ONE (06:50)
[2023-01-13] MEDS ORDERED: ONDANSETRON 4 MG/2 ML VIAL IVP STA (06:50)
[2023-01-13] MEDS ORDERED: DEXAMETHASONE SOD PHOSPHATE 10 MG/ML 1 ML VIAL IVP STA (06:50)
[2023-01-13] MEDS ORDERED: HYDROmorphone 0.5 MG/0.5 ML SYRINGE IVP STA (06:50)
[2023-01-13 07:19] LABS: Basophils % (A) 0 %; Eosinophils # (A) 0.1 k/uL (0-0.7); Eosinophils % (A) 1 %; HCT 40.5 % (34.0-46.0); HGB 13.6 gm/dL (11.4-16.0); Lymphocytes # (A) 2.8 k/uL (1.0-4.8); Lymphocytes % (A) 26 %; MCH 31.6 pg (25.0-35.0); MCHC 33.6 g/dL (31.0-37.0); Mean Platelet Volume 7.6; Monocytes # (A) 0.9 k/uL (0-1.0); Monocytes % (A) 9 %; Neutrophils # (A) 6.7 k/uL (1.3-7.7); Neutrophils % (A) 62 %; Platelet Count 350 k/uL (150-450); RBC 4.31 m/uL (3.80-5.40); RDW 12.2 % (11.5-15.5); WBC 10.7 k/uL (3.8-10.6)
[2023-01-13 07:28] LABS: ALT 28 U/L (4-34); AST 25 U/L (14-36); African American GFR (CKD) >90 (>60 ml/min/1.73 sqM); Albumin 4.2 g/dL (3.5-5.0); Alkaline Phosphatase 62 U/L (38-126); Anion Gap 5 mmol/L; Blood Urea Nitrogen 8 mg/dL (7-17); Calcium 9.2 mg/dL (8.4-10.2); Carbon Dioxide 29 mmol/L (22-30); Chloride 102 mmol/L (98-107); Glucose 95 mg/dL (74-99); Non-African American GFR(CKD) >90 (>60 ml/min/1.73 sqM); Potassium 4.4 mmol/L (3.5-5.1); Sodium 136 mmol/L (137-145); Total Bilirubin 0.5 mg/dL (0.2-1.3); Total Protein 7.3 g/dL (6.3-8.2)
--- NOTE | 2023-01-13 07:56 | ED ---
Neck Injury/Pain HPI - General Chief Complaint: Neck Pain/Injury Stated Complaint: postop comp/hard time swallowing Time Seen by Provider: 01/13/23 06:44 Source: patient, RN notes reviewed Mode of arrival: ambulatory Limitations: no limitations - History of Present Illness Initial Comments: This a 32-year-old female presents emergency Department chief complaint of swallowing. Patient states she hadn't to lymph nodes removed from right side of her neck on Friday by Dr. Betancourt at [facility]. Patient states is accompanied surgery. Patient states she has been in pain ever since surgery states that it was sore to swallow but states since more difficult times she states she is able to get liquids down. Patient was not scheduled for follow-up and that she had complications. Patient denies any fevers or chills patient is currently on Criders. - Related Data Home Medications Medication Instructions Recorded Confirmed Dextroamphetamine/Amphetamine 1 tab PO DAILY 02/18/17 02/20/17 [Adderall] Previous Rx's Medication Instructions Recorded Docusate [Colace] 100 mg PO BID #20 capsule 02/20/17 HYDROcodone/APAP 7.5-325MG [Criders 1 each PO Q4H PRN #60 tab 02/20/17 7.5] levoFLOXacin [Levaquin] 500 mg PO DAILY #10 tab 02/20/17 Allergies Allergy/AdvReac Type Severity Reaction Status Date / Time hydrocodone [From Vicodin] AdvReac Unknown Verified 05/03/20 17:48 Review of Systems ROS Statement: Those systems with pertinent positive or pertinent negative responses have been documented in the HPI. ROS Other: All systems not noted in ROS Statement are negative. Past Medical History Past Medical History: No Reported History History of Any Multi-Drug Resistant Organisms: None Reported Past Surgical History: No Surgical Hx Reported Additional Past Surgical History / Comment(s): wisdom teeh extracted, Neck surgery 2 lymph nodes and cyst Past Anesthesia/Blood Transfusion Reactions: Unable to Obtain Past Psychological History: No Psychological Hx Reported Smoking Status: Current every day smoker Past Alcohol Use History: Occasional Past Drug Use History: Marijuana - Past Family History Mother Family Medical History: Cancer General Exam Limitations: no limitations General appearance: alert, in no apparent distress Head exam: Present: atraumatic, normocephalic, normal inspection Eye exam: Present: normal appearance, PERRL, EOMI. Absent: scleral icterus, conjunctival injection, periorbital swelling ENT exam: Present: normal oropharynx, mucous membranes moist, TM's normal bilaterally, normal external ear exam. Absent: normal exam (Large surgical incision right side of the neck, there is moderate swelling no erythema there is some tenderness palpation) Neck exam: Present: normal inspection, full ROM. Absent: tenderness, meningismus, lymphadenopathy Respiratory exam: Present: normal lung sounds bilaterally. Absent: respiratory distress, wheezes, rales, rhonchi, stridor Cardiovascular Exam: Present: regular rate, normal rhythm, normal heart sounds. Absent: systolic murmur, diastolic murmur, rubs, gallop, clicks Course Vital Signs 01/13/23 01/13/23 06:37 07:31 Temperature 97.6 F Pulse Rate 74 67 Respiratory 16 16 Rate Blood Pressure 123/79 110/73 O2 Sat by Pulse 98 96 Oximetry Medical Decision Making - Medical Decision Making Was pt. sent in by a medical professional or institution (, PA, [employer], urgent care, hospital, or senior care...) When possible be specific @ -No Did you speak to anyone other than the patient for history (EMS, parent, family, police, friend...)? What history was obtained from this source @ -No Did you review nursing and triage notes (agree or disagree)? Why? @ -I reviewed and agree with nursing and triage notes Were old charts reviewed (outside hosp., previous admission, EMS record, old EKG, old radiological studies, urgent care reports/EKG's, senior care records)? Report findings @ -No old charts were reviewed Differential Diagnosis (chest pain, altered mental status, abdominal pain women, abdominal pain men, vaginal bleeding, weakness, fever, dyspnea, syncope, headache, dizziness, GI bleed, back pain, seizure, CVA, palpatations, mental health, musculoskeletal)? @ -Postsurgical edema, abscess, stridor, this list is not conclusive EKG interpreted by me (3pts min.). @ -None X-rays interpreted by me (1pt min.). @ -None done CT interpreted by me (1pt min.). @ -CT of soft tissue neck shows some swelling of the arytenoid cartilage no abscess or fluid collection noted, postsurgical changes U/S interpreted by me (1pt. min.). @ -None done What testing was considered but not performed or refused? (CT, X-rays, U/S, labs)? Why? @ -None What meds were considered but not given or refused? Why? @ -None Did you discuss the management of the patient with other professionals (professionals i.e. , PA, [employer], lab, RT, psych nurse, social worker assistant, parachute folder, teacher, [employer] officer, case operator)? Give summary @ -[I did discuss case with patient's ENT Dr Benavidez covering for Dr. Betancourt recommended patient be discharged on Medrol Dosepak to follow-up in office to follow-up with him for any worsening or not improving symptoms felt this is normal postsurgical finding Was smoking cessation discussed for >3mins.? @ -No Was critical care preformed (if so, how long)? @ -No Were there social determinants of health that impacted care today? How? (Homelessness, low income, unemployed, alcoholism, drug addiction, transportation, low edu. Level, literacy, decrease access to med. care, group home, rehab)? @ -No Was there de-escalation of care discussed even if they declined (Discuss DNR or withdrawal of care, Hospice)? DNR status @ -No What co-morbidities impacted this encounter? (DM, HTN, Smoking, COPD, CAD, Cancer, CVA, ARF, Chemo, Hep., AIDS, mental health diagnosis, sleep apnea, morbid obesity)? @ -None Was patient admitted / discharged? Hospital course, mention meds given and route, prescriptions, significant lab abnormalities, going to OR and other pertinent info. @ -Discharge patient has some postsurgical swelling causing sore throat and long intubation causing discomfort. Patient will be discharged with Medrol Dosepak follow-up in office and return for any worsening changes symptoms. Undiagnosed new problem with uncertain prognosis? @ -No Drug Therapy requiring intensive monitoring for toxicity (Heparin, Nitro, Insulin, Cardizem)? @ -No Were any procedures done? @ -No Diagnosis/symptom? @ -[Arytenoid cartilage swelling Acute, or Chronic, or Acute on Chronic? @ -Acute Uncomplicated (without systemic symptoms) or Complicated (systemic symptoms)? @ -Uncomplicated Side effects of treatment? @ -No Exacerbation, Progression, or Severe Exacerbation? @ -No Poses a threat to life or bodily function? How? (Chest pain, USA, ND, pneumonia, PE, COPD, DKA, ARF, appy, cholecystitis, CVA, Diverticulitis, Homicidal, Suicidal, threat to staff... and all critical care pts) @ -No - Lab Data Result diagrams: 01/13/23 06:55 01/13/23 06:55 Lab Results 01/13/23 01/13/23 Range/Units 06:55 06:55 WBC 10.7 H (3.8-10.6) k/uL RBC 4.31 (3.80-5.40) m/uL Hgb 13.6 (11.4-16.0) gm/dL Hct 40.5 (34.0-46.0) % MCV 94.0 (80.0-100.0) fL MCH 31.6 (25.0-35.0) pg MCHC 33.6 (31.0-37.0) g/dL RDW 12.2 (11.5-15.5) % Plt Count 350 (150-450) k/uL MPV 7.6 Neutrophils % 62 % Lymphocytes % 26 % Monocytes % 9 % Eosinophils % 1 % Basophils % 0 % Neutrophils # 6.7 (1.3-7.7) k/uL Lymphocytes # 2.8 (1.0-4.8) k/uL Monocytes # 0.9 (0-1.0) k/uL Eosinophils # 0.1 (0-0.7) k/uL Basophils # 0.0 (0-0.2) k/uL Sodium 136 L (137-145) mmol/L Potassium 4.4 (3.5-5.1) mmol/L Chloride 102 (98-107) mmol/L Carbon Dioxide 29 (22-30) mmol/L Anion Gap 5 mmol/L BUN 8 (7-17) mg/dL Creatinine 0.55 (0.52-1.04) mg/dL Est GFR (CKD-EPI)AfAm >90 (>60 ml/min/1.73 sqM) Est GFR (CKD-EPI)NonAf >90 (>60 ml/min/1.73 sqM) Glucose 95 (74-99) mg/dL Calcium 9.2 (8.4-10.2) mg/dL Total Bilirubin 0.5 (0.2-1.3) mg/dL AST 25 (14-36) U/L ALT 28 (4-34) U/L Alkaline Phosphatase 62 (38-126) U/L Total Protein 7.3 (6.3-8.2) g/dL Albumin 4.2 (3.5-5.0) g/dL Disposition Clinical Impression: Anomaly of arytenoid cartilage, Postoperative edema Disposition: HOME SELF-CARE Condition: Stable Additional Instructions: Please return to the Emergency Department if symptoms worsen or any other concerns. Is patient prescribed a controlled substance at d/c from ED?: No Referrals: Henrry Marcus DO [Primary Care Provider] - 1-2 days Time of Disposition: 08:43
--- NOTE | 2023-01-13 08:11 | CT ---
EXAMINATION 314.5 TYPE: CT soft tissue neck w con CT DLP: 314.5 mGycm, Automated exposure control for dose reduction was used. DATE OF EXAM: 01/13/2023 8:04 AM COMPARISON: 10/21/2022, 01/15/2017. CLINICAL INDICATION:Female, 32 years old with history of s/p lymphadenectomy, difficulty swallowing; TECHNIQUE: Standard enhanced CT of the neck. Axial sections with coronal and sagittal reformats were obtained. Contrast used: 70 cc of Isovue-300 Oral contrast used: none. FINDINGS: Brain: Visualized portions are grossly unremarkable. Orbits: Unremarkable Sinuses: Grossly unremarkable. Spaces of the neck: Post surgical changes the right neck. There is few foci of gas present in the eddi gical bed. Surgical clip is present. There is asymmetric fullness of the right arytenoid cartilage. T his is best appreciated on series 202 image 45 and 201 image 51. There is no organizing fluid collect ion at the neck. Musculoskeletal: No acute osseous pathology. Lymph nodes: Multiple nonenlarged lymph nodes are seen along both anterior chains of the neck. Vascular structures: Visualized major arteries are patent without evidence of aneurysm. Thoracic Inlet/airway: Airway is patent. The lung apices are clear. Soft tissues/Thyroid: Thyroid and remainder of the soft tissues are unremarkable. Other: none. IMPRESSION Asymmetric fullness of the right arytenoid cartilage favored to be secondary to edema. Further evalua tion with direct visualization may be of benefit. Postsurgical change without evidence for organizing fluid collection to suggest abscess.
[2023-01-13 09:26] VITALS: BP 113/68; PULSE 76; RESP 18
== END 2023-01-13 09:26 | disposition home or self-care (01) ==
LOC: EC 06:33
DX: T81.89XA Other complications of procedures, not elsewhere classified, initial encounter (principal); R60.9 Edema, unspecified; Q31.8 Other congenital malformations of larynx; F17.200 Nicotine dependence, unspecified, uncomplicated; F12.90 Cannabis use, unspecified, uncomplicated; Z88.5 Allergy status to narcotic agent
CPT/HCPCS: 36415; 80053; 85025; 70491; 99284; 96374; 96375 ×2; 96361 ×2; J1100; J2405; J1170; Q9967

== ENCOUNTER 2023-03-22 03:05 | Emergency (ER) | payer OTHER ==
[2023-03-22 03:29] VITALS: TEMP 98.3
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
[2023-03-22] MEDS ORDERED: KETOROLAC 15 MG/ML 1 ML VIAL IM STA (07:25)
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
[2023-03-22 07:44] VITALS: BP 111/78; PULSE 96; RESP 18
== END 2023-03-22 08:10 | disposition home or self-care (01) ==
LOC: EC 03:05
DX: R07.89 Other chest pain (principal); F17.200 Nicotine dependence, unspecified, uncomplicated; F12.90 Cannabis use, unspecified, uncomplicated; Z88.5 Allergy status to narcotic agent; V49.40XA Driver injured in collision with unspecified motor vehicles in traffic accident, initial encounter
CPT/HCPCS: 73562; 72170; 71046; 99284; 96372; J1885

== ENCOUNTER → 2023-05-15 | Outpatient (CLI) | payer OTHER ==
--- NOTE | 2023-05-15 11:05 | US ---
EXAMINATION TYPE: US transvaginal DATE OF EXAM: 05/15/2023 COMPARISON: US TV 11/22/22 CLINICAL INDICATION: Female, 32 years old with history of Z15.02; Screening for ovarian cancer; gene carrier TECHNIQUE: Transvaginal (TV). Transabdominal sonographic images of the pelvis were acquired. Trans vaginal sonographic images were medically necessary to better assess the following anatomy: Date of LMP: 04/20/23 EXAM MEASUREMENTS: Uterus: 8.3 x 3.4 x 4.5 cm Endometrial Stripe: 0.95 cm Right Ovary: 3.1 x 2.0 x 2.6 cm Left Ovary: 3.1 x 1.8 x 2.2 cm 1. Uterus: Anteverted wnl 2. Endometrium: wnl 3. Right Ovary: wnl 4. Left Ovary: wnl 5. Bilateral Adnexa: wnl 6. Posterior cul-de-sac: wnl IMPRESSION: No discrete abnormality seen.
--- NOTE | 2023-05-16 11:05 | MM ---
Reason for Exam: Screening (asymptomatic). Last screening mammogram was performed 12 month(s) ago. Patient History: Menarche at age 12. Patient has no children. Premenopausal. Patient tested for BRCA1 outcome was positive. Hormonal Contraceptives for 7 years from age 14 until age 23. Maternal grandmother had breast cancer, age 40. Mother had breast cancer, age 49. Last menstrual period: 04/21/2023 Prior Study Comparison: 08/31/2020 Right Diagnostic Mammogram, [facility]. 03/29/2021 Bilateral Screening Mammogram, [facility]. 05/14/2022 Bilateral MG 3D screening mammo w/cad, [facility]. Tissue Density: The breast tissue is heterogeneously dense. This may lower the sensitivity of mammography. Findings: Analyzed By CAD. There is no suspicious group of microcalcifications or new suspicious mass in either breast. Overall Assessment: Negative, BI-RAD 1 Management: Screening Mammogram of both breasts in [address] [facility] will attempt to contact patient to return for supplemental views and ultrasound if indicated. Patient should continue monthly self-breast exams. A clinical breast exam by your physician is recommended on an annual basis. This exam should not preclude additional follow-up of suspicious palpable abnormalities. Note on Tangela scores and lifetime risk: 1. A Tangela score greater than 3% is considered moderate risk. If this is the case, consider specialist referral to assess eligibility for a risk reducing agent. 2. If overall lifetime risk for the development of breast cancer is 20% or higher, the patient may qualify for future screening with alternating mammogram and breast MRI. Electronically signed and approved by: Oscar Curry DO
== END | disposition home or self-care (01) ==
LOC: RADMAMWWP 09:39
PROVIDERS: ATTEND Internal Medicine Hematology & Oncology
DX: Z12.31 Encounter for screening mammogram for malignant neoplasm of breast (principal); Z15.02 Genetic susceptibility to malignant neoplasm of ovary; Z15.01 Genetic susceptibility to malignant neoplasm of breast; Z80.3 Family history of malignant neoplasm of breast
CPT/HCPCS: 76830; 77063; 77067

== ENCOUNTER → 2023-11-21 | Outpatient (CLI) | payer OTHER ==
--- NOTE | 2023-11-21 15:17 | BMR ---
EXAM DATE: 11/21/2023 EXAM DESCRIPTION: MRI-Breast Bilat (W/WO Contrast) INDICATION: High-risk screening. Genetic susceptibility to breast cancer. COMPARISON: Prior breast MRI dated 11/22/2022 and 10/01/2021 CONTRAST: 8.5ml gadavist contrast material. TECHNIQUE: Multi sequence multiplanar MR imaging of the breasts was obtained. Subsequently, after the uneventful intravenous administration of Gadavist contrast material, 6 dynamic sequences were then obtained. Post processing was performed utilizing a [employer] CAD workstation. FINDINGS: The breasts are composed of scattered fibroglandular tissue. There is mild background parenchymal enhancement identified. There is no axillary or internal mammary lymphadenopathy. No focal skin thickening or nipple retraction. The bone marrow signal intensity is unremarkable. No adenopathy in the visualized mediastinum. T2 weighted images demonstrated no dominant cystic lesions in either breast. Subcentimeter 0.6 parenchymal nodularity in the right breast mid to posterior depth (series 503, image 382) along the nipple line is not significantly changed dated back to September 2021. Post contrast images demonstrated no abnormal enhancement in either breast to suggest malignancy. There is no abnormal signal or enhancement in the chest wall or subcutaneous tissue. IMPRESSION: 1. No MR evidence of malignancy in either breast. Linear 0.6 cm enhancement in the right breast at posterior depth along the nipple line is not significantly changed since prior examination of 10/01/2021. 2. No axillary or internal mammary lymphadenopathy Final assessment: BI-RADS category 2: Benign findings MTDD
== END | disposition home or self-care (01) ==
LOC: RADMRIMAIN 07:56
PROVIDERS: ATTEND Internal Medicine Hematology & Oncology
DX: Z15.01 Genetic susceptibility to malignant neoplasm of breast (principal)
CPT/HCPCS: C8908; A9585; 77049

== ENCOUNTER 2024-02-29 09:38 | Emergency (ER) | payer OTHER ==
[2024-02-29 09:42] VITALS: RESP 18
--- NOTE | 2024-02-29 10:06 | ED ---
General Adult HPI - General Chief complaint: ENT Stated complaint: Throat Pain Time Seen by Provider: 02/29/24 09:50 Source: patient, RN notes reviewed, old records reviewed Mode of arrival: ambulatory Limitations: no limitations - History of Present Illness Initial comments: This is a 33-year-old female who presents to the emergency department complain ing of a sore throat she states she was diagnosed with strep throat about a month ago and was on amoxicillin for 10 days. Patient states about 2 weeks ago she started having a sore throat again and has gotten progressively worse. Patient states the pain is much more considerable on the left side than the right. Patient states she also has some swelling to the side of her face and some pain up into the ear. Patient denies any fever or chills. Patient denies any cough shortness of breath or chest pain. - Related Data Home Medications Medication Instructions Recorded Confirmed Dextroamphetamine/Amphetamine 1 tab PO DAILY 02/18/17 02/20/17 [Adderall] Previous Rx's Medication Instructions Recorded Docusate [Colace] 100 mg PO BID #20 capsule 02/20/17 HYDROcodone/APAP 7.5-325MG [[place] 1 each PO Q4H PRN #60 tab 02/20/17 7.5] levoFLOXacin [Levaquin] 500 mg PO DAILY #10 tab 02/20/17 methylPREDNISolone Dose Pack 4 mg PO DIRECTED #1 packet 01/13/23 [Medrol Dose Pack] Clindamycin [Cleocin] 450 mg PO Q8H #30 cap 02/29/24 predniSONE [Deltasone] 40 mg PO DAILY #8 tab 02/29/24 Allergies Allergy/AdvReac Type Severity Reaction Status Date / Time hydrocodone [From Vicodin] AdvReac Unknown Verified 02/29/24 09:42 Review of Systems ROS Statement: Those systems with pertinent positive or pertinent negative responses have been documented in the HPI. ROS Other: All systems not noted in ROS Statement are negative. Past Medical History Past Medical History: No Reported History History of Any Multi-Drug Resistant Organisms: None Reported Past Surgical History: No Surgical Hx Reported Additional Past Surgical History / Comment(s): wisdom teeh extracted, Neck surgery 2 lymph nodes and cyst Past Anesthesia/Blood Transfusion Reactions: Unable to Obtain Past Psychological History: No Psychological Hx Reported Smoking Status: Current every day smoker Past Alcohol Use History: Occasional Past Drug Use History: Marijuana - Past Family History Mother Family Medical History: Cancer General Exam - General Exam Comments Initial Comments: GENERAL Patient is well-developed and well-nourished. Patient is in mild distress. EYES Patient's pupils are equal and round. Extraocular motion is intact ENT Patient has significant swelling to the left tonsil there may be a peritonsillar abscess. Uvula was slightly shifted to the right SKIN Unremarkable NEURO The patient is alert and oriented A&Ox3 PYSCH Patient has normal interpersonal interactions. MUSCULOSKELETAL All 4 extremities have full range of motion Limitations: no limitations Course Vital Signs 02/29/24 09:39 Temperature 98 F Pulse Rate 99 Respiratory 18 Rate Blood Pressure 115/78 O2 Sat by Pulse 98 Oximetry Procedures - Incision & Drainage Consent Obtained: verbal consent Site: other (Consult) Anesthetic Used: benzocaine 0.25% Needle Aspiration Performed?: Yes Irrigation Performed?: No I&D Drainage Obtained: Pus, Blood Insertion of drain: No Culture Obtained?: No Complications: pain Patient Tolerated Procedure: well Medical Decision Making - Medical Decision Making Was pt. sent in by a medical professional or institution (Dr. PA, SOFTWARE DESIGN ANALYST, urgent care, hospital, or usp...) When possible be specific @ -No Did you speak to anyone other than the patient for history (EMS, parent, family, police, friend...)? What history was obtained from this source @ -No Did you review nursing and triage notes (agree or disagree)? Why? @ -I reviewed and agree with nursing and triage notes Were old charts reviewed (outside hosp., previous admission, EMS record, old EKG, old radiological studies, urgent care reports/EKG's, usp records)? Report findings @ -No old charts were reviewed Differential Diagnosis (chest pain, altered mental status, abdominal pain women, abdominal pain men, vaginal bleeding, weakness, fever, dyspnea, syncope, headache, dizziness, GI bleed, back pain, seizure, CVA, palpatations, mental health, musculoskeletal)? @ -Strep throat, viral pharyngitis, peritonsillar abscess, this is not an all- inclusive list EKG interpreted by me (3pts min.). @ -As above X-rays interpreted by me (1pt min.). @ -None done CT interpreted by me (1pt min.). @ -None done U/S interpreted by me (1pt. min.). @ -None done What testing was considered but not performed or refused? (CT, X-rays, U/S, labs)? Why? @ -None What meds were considered but not given or refused? Why? @ -None Did you discuss the management of the patient with other professionals (professionals i.e. , PA, SOFTWARE DESIGN ANALYST, lab, RT, psych nurse, social media director, aircraft mechanic, teacher, upscale security officer, pillowcase maker)? Give summary @ -No Was smoking cessation discussed for >3mins.? @ -No Was critical care preformed (if so, how long)? @ -No Were there social determinants of health that impacted care today? How? (Homelessness, low income, unemployed, alcoholism, drug addiction, transportation, low edu. Level, literacy, decrease access to med. care, custodial, rehab)? @ -No Was there de-escalation of care discussed even if they declined (Discuss DNR or withdrawal of care, Hospice)? DNR status @ -No What co-morbidities impacted this encounter? (DM, HTN, Smoking, COPD, CAD, Cancer, CVA, ARF, Chemo, Hep., AIDS, mental health diagnosis, sleep apnea, morbid obesity)? @ -None Was patient admitted / discharged? Hospital course, mention meds given and route, prescriptions, significant lab abnormalities, going to OR and other pertinent info. @ -I used an 18-gauge needle to aspirate the abscess very little pus was obtained patient will be placed on clindamycin and prednisone and follow-up with ear nose and throat and she states she has an ear nose and throat doctor already Undiagnosed new problem with uncertain prognosis? @ -No Drug Therapy requiring intensive monitoring for toxicity (Heparin, Nitro, Insulin, Cardizem)? @ -No Were any procedures done? @ -No Diagnosis/symptom? @ -Peritonsillar abscess Acute, or Chronic, or Acute on Chronic? @ -Acute Uncomplicated (without systemic symptoms) or Complicated (systemic symptoms)? @ -Complicated Side effects of treatment? @ -No Exacerbation, Progression, or Severe Exacerbation? @ -No Poses a threat to life or bodily function? How? (Chest pain, [place], ID, pneumonia, PE, COPD, DKA, ARF, appy, cholecystitis, CVA, Diverticulitis, Homicidal, Suicidal, threat to staff... and all critical care pts) @ -No - Lab Data Lab Results 02/29/24 Range/Units 10:11 Group A Strep (PCR) DETECTED A (Not Detectd) Disposition Clinical Impression: Peritonsillar abscess Disposition: HOME SELF-CARE Instructions (If sedation given, give patient instructions): Abscess Incision and Drainage (ED), Abscess (ED) Additional Instructions: Patient is to follow-up with ENT as soon as possible. Patient should return to the emergency department if there is any difficulty swallowing or breathing or any symptoms worsen. Prescriptions: Clindamycin [Cleocin] 450 mg PO Q8H #30 cap predniSONE [Deltasone] 40 mg PO DAILY #8 tab Is patient prescribed a controlled substance at d/c from ED?: No Referrals: Henrry Marcus DO [Primary Care Provider] - 1-2 days Time of Disposition: 10:36
[2024-02-29] MEDS: BENZOCAINE SPRAY 1 CAN MUCOUS MEM STA (10:11)
[2024-02-29 10:54] VITALS: BP 136/84; PULSE 97; TEMP 98.4
== END 2024-02-29 10:54 | disposition home or self-care (01) ==
LOC: EC 09:38
DX: J36 Peritonsillar abscess (principal); F17.200 Nicotine dependence, unspecified, uncomplicated; F12.90 Cannabis use, unspecified, uncomplicated; Z88.5 Allergy status to narcotic agent
CPT/HCPCS: 42700; 87651; 99282

== ENCOUNTER 2024-05-16 21:00 | Emergency (ER) | payer OTHER ==
[2024-05-16 21:03] VITALS: TEMP 98.2
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
[2024-05-16] MEDS: HYDROmorphone 0.5 MG/0.5 ML SYRINGE IM STA (21:31)
--- NOTE | 2024-05-16 21:41 | XR ---
EXAMINATION TYPE: XR ankle complete LT DATE OF EXAM: 05/16/2024 9:30 PM CLINICAL INDICATION: Female, 33 years old with history of injury, edema, pain; COMPARISON: None TECHNIQUE: XR ankle complete LT; ankle is imaged in frontal, lateral and oblique projections. FINDINGS/IMPRESSION: Cortical defect off the lateral aspect of the talus seen on at least 2 views concerning for fracture. There is associated soft tissue swelling.
[2024-05-16 22:24] VITALS: BP 116/77; PULSE 100; RESP 20
== END 2024-05-16 22:23 | disposition home or self-care (01) ==
LOC: EC 21:00
DX: S82.892A Other fracture of left lower leg, initial encounter for closed fracture (principal); F17.200 Nicotine dependence, unspecified, uncomplicated; Z88.5 Allergy status to narcotic agent; X50.1XXA Overexertion from prolonged static or awkward postures, initial encounter
CPT/HCPCS: 73610; 99283; 96372; 29515; J1170

== ENCOUNTER → 2024-05-28 | Outpatient (CLI) | payer OTHER ==
--- NOTE | 2024-05-31 09:03 | MR ---
MRI left ankle without contrast HISTORY: Pain following trauma. COMPARISON: None. TECHNIQUE: Multiecho multiplanar images of the left ankle were obtained without contrast. FINDINGS: There is a transverse fractures through the mid talus extending to the medial margin near the medial facet of the talocalcaneal joint. The fracture line does not appear to extend to the articular surfac e. There is marked bone marrow edema within the talus. No other fractures are seen. There is a small joint effusion. The Achilles tendon, peroneal tendons, the extensor tendons and flexor tendons and sheaths are all in tact without tendon tear or tenosynovitis. There is a complete tear of the anterior talofibular ligament. The remaining ligaments are intact. IMPRESSION: 1. Nondisplaced fracture of the talus as described above. 2. Complete of the anterior talofibular ligament.
== END | disposition home or self-care (01) ==
LOC: RADMRIMAIN 05:46
PROVIDERS: ATTEND Orthopaedic Surgery
DX: M25.572 Pain in left ankle and joints of left foot